=== PATIENT | male | born 1990 | race Caucasian/White ===

== ENCOUNTER → 2018-10-05 12:45 | Outpatient (CLI) | payer OTHER, SELFPAY ==
--- NOTE | 2018-10-05 12:55 | XR_ITS ---
XR knee LT 3V HISTORY: ITS.REASON: BILAT KNEE PAIN ORDERING PHYSICIAN: Tim Gibson MD PATIENT AGE: 28 years COMPARISON: None FINDINGS: No fracture or dislocation. No lytic or blastic change. Normal mineralization. No significant arthritic changes evident. No other significant findings IMPRESSION: Negative Knee
--- NOTE | 2018-10-05 12:55 | XR_ITS ---
XR knee RT 3V HISTORY: ITS.REASON: BILAT KNEE PAIN ORDERING PHYSICIAN: Tim Gibson MD PATIENT AGE: 28 years COMPARISON: None FINDINGS: No fracture or dislocation. No lytic or blastic change. Normal mineralization. No significant arthritic changes evident. No other significant findings IMPRESSION: Negative Knee
== END ==
PROVIDERS: PCP Internal Medicine Adolescent Medicine; Visit Provider Internal Medicine Adolescent Medicine
DX: M25.561 Pain in right knee (principal); M25.562 Pain in left knee
CPT/HCPCS: 73562

== ENCOUNTER 2018-10-10 16:51 | Outpatient (RCR) | payer OTHER, SELFPAY ==
--- NOTE | 2018-10-10 17:48 | HMH.PTOPEV ---
PT Outpatient Evaluation Rehab PT Outpatient Evaluation Start: 10/10/18 17:35 Freq: Status: Active Protocol: Document 10/10/18 17:35 CHEPENAOMI (Rec: 10/10/18 17:48 SRINIVASAALEX [id number]) Electronically Signed By Rc Rosado PT 10/10/18 17:35 Outpatient Therapy Subjective History Subjective History This is the initial Physical Therapy evaluation for Leander Staton. Pt is a 28 y/o male referred to PT for c /o L knee pain. Pt reports insidious onset of pain ~ 2014 . Pt reports on time knee hurts is with ascending stairs . Pt reports walking, running and descending stairs cause know pain. Chief Complaint Pain Symptom Type Ache Sharp Symptoms Relieved By Rest/Positioning Prior Functional Limitations None Current Functional Limitations Stairs Symptom Description Intermittent Level of pain today (0-10) 0 Pain scale - at its best (0-10) 0 Pain scale - at its worst (0-10) 3 Hip/Knee Eval Gait Observation General Gait Pattern Observation No Deviations/Normal Assistive Device Assistive Devices None / NA Palpation Tenderness bilateral Knee Palpation Finding None/Normal Hip Palpation Findings None/Normal MMT Hip Flexion Strength Grade 4 Good Knee Extension Strength Grade 5 Normal Knee Flexion Strength Grade 4 Good ROM Hip ROM Reason Not Measured Within Functional Limits Knee ROM Reason Not Measured Within Functional Limits Special Tests Knee Apprehension Test Negative Left Negative Right Knee Apley Compression Test Negative Left Negative Right Knee Anterior Drawer Test Positive Left Positive Right Knee Bounce Home Test Negative Left Negative Right Knee Jerk (Clunk) Test Negative Left Negative Right Warner 90/90 Test (PCL) Negative Left Negative Right Knee Anterior Phillip Test Positive Left Positive Right Knee Posterior Sag ([place] Drawer) Test Negative Left Negative Right Knee Valgus Stress Test Negative Left Negative Right Knee Varus Stress Test Negative Left Negative Right Knee Joanne Test Negative Left
== END 2018-10-10 16:55 | disposition home or self-care (01) ==
LOC: PT 16:51
PROVIDERS: Visit Provider Internal Medicine Adolescent Medicine
DX: M25.562 Pain in left knee (principal); M25.561 Pain in right knee
CPT/HCPCS: 97163

== ENCOUNTER 2022-04-02 15:30 | Emergency (ER) | payer BC, SELFPAY ==
--- NOTE | 2022-04-02 15:57 | HMH.EDUTC ---
[facility] [place] Disposition Clinical Impression: COVID-19 Disposition: Home, Self-Care Condition on Discharge: Good Instructions: Ondansetron, Benzonatate, DI for COVID-19 (Suspected or Confirmed ), Preventing the Spread of Coronavirus Discharge Instructions Additional Instructions: Drink plenty of fluids. Take tylenol or ibuprofen for pain or fever. Take the medications as directed. Follow up with your regular doctor. GO TO THE ER FOR ANY WORSENING SYMPTOMS Prescriptions: Ondansetron [Zofran 4mg ODT] 4 mg PO Q8HP PRN #12 tab PRN Reason: Nausea Transmission Status: Received by [facility] #[id number] Benzonatate [Benzonatate 100mg cap] 100 mg PO TIDP PRN #30 cap PRN Reason: Cough Transmission Status: Received by [facility] #[id number] Nirmatrelvir/Ritonavir [Paxlovid 2X150 mg-100 mg (Eua)] 1 packet PO DIRECTED 5 Days #1 packet Transmission Status: Received by [facility] #[id number] Referrals: Tim Gibson MD [Primary Care Provider] - Time of Disposition: 16:01 Medical Decision Making - Medical Records Medical records reviewed: No: I reviewed the patient's medical records. - Silvio Inquiry Pt receiving controlled substance: No Vital Signs: 04/02/22 16:04 04/02/22 16:06 Temperature 98.0 F 98.0 F Temperature Source Oral Pulse Rate 83 Pulse Rate [Left] 83 Respiratory Rate 16 16 Blood Pressure 121/70 Blood Pressure [Right Arm] 121/70 Blood Pressure Mean [Right Arm] 87 02 Sat by Pulse Oximetry 97 - Lab Data Lab Results 04/02/22 15:52: Strep Scn Rapid Clinic Negative [facility] [place] HPI - General Stated complaint: Needs refill of medication Time Seen by Provider: 04/02/22 16:03 - History of Present Illness Provider Complaint: He tested positive for covid-19 this morning. He is here to be seen to discuss taking paxlovid. He has a history of asthma. - Related Data Previous Rx's Medication Instructions Recorded Benzonatate [Benzonatate 100mg 100 mg PO TIDP PRN #30 cap 04/02/22 cap] Nirmatrelvir/Ritonavir [Paxlovid 1 packet PO DIRECTED 5 Days #1 04/02/22 2X150 mg-100 mg (Eua)] packet Ondansetron [Zofran 4mg ODT] 4 mg PO Q8HP PRN #12 tab 04/02/22 Allergies Allergy/AdvReac Type Severity Reaction Status Date / Time No Known Allergies Allergy Verified 04/02/22 16:07 [facility] History - Hepatitis A Screen Attestation statement:: This patient has been screened for Hepatitis A risk factors. I have reviewed the patient's past medical history: Yes ROS Obtained: Yes All systems reviewed & no additional complaints - Constitutional Constitutional: Reports as per HPI, Reports fever(s) - Eyes Eyes: Denies eye discharge - ENT Ears, Nose, Mouth, and Throat: Reports as per HPI, Reports sore throat - Cardiovascular Cardiovascular: Denies chest pain - Respiratory Respiratory: Reports chest congestion, Reports cough, Denies dyspnea, Denies stridor, Denies wheezing - Gastrointestinal Gastrointestingal: Reports: nausea. Denies: abdominal pain, cramping, diarrhea, vomiting - Musculoskeletal Musculoskeletal: Denies joint pain - Integumentary/Breasts Skin/Breast: Denies rash Physical Exam - General General appearance: alert, in no apparent distress - Head Head exam: atraumatic, normocephalic, normal inspection - Eye Eye exam: Present: normal appearance, PERRL, EOMI - ENT ENT exam: Present: normal exam, normal oropharynx, mucous membranes moist, TM's normal bilaterally, normal external ear exam - Neck Neck exam: Present: normal inspection, full ROM, trachea midline. Absent: meningismus, lymphadenopathy - Chest Chest inspection: Present: normal inspection, symmetric chest wall rise. Absent: tenderness - Respiratory Respiratory exam: Present: normal lung sounds bilaterally. Absent: respiratory distress - Cardiovascular Cardiovascular exam: Present: regular rate, normal rhythm. Absent: JVD - Abdom
[2022-04-02 16:04] VITALS: BP 121/70; PULSE 83; RESP 16; TEMP 36.7; O2SAT 97; BMI 19.2
[2022-04-02 16:06] VITALS: BP 121/70; PULSE 83; RESP 16; TEMP 36.7
[2022-04-02 16:08] LABS: UTC Strep Screen (Rapid) Negative (Negative)
== END 2022-04-02 16:14 | disposition home or self-care (01) ==
PROVIDERS: Emergency Provider Nurse Practitioner Family; PCP Internal Medicine Adolescent Medicine
DX: U07.1 COVID-19 (principal); J45.909 Unspecified asthma, uncomplicated
CPT/HCPCS: 87880; 99212; C9803; G0463; U0003; U0005